=== PATIENT | male | born 1995 | race African-American/Black ===

== ENCOUNTER 2017-05-21 14:12 | Emergency (ER) | payer OTHER ==
[~2017-05-21] VITALS: Ht 177.8 cm; Wt 71.4 kg
[~2017-05-21 14:12] MED LIST: NOHOMEMEDS; ULTRAM50 MG PO
[2017-05-21] MEDS ORDERED: PREDNISONE10 MG PO (15:49)
[2017-05-21] MEDS ORDERED: PEPCID20 MG PO (15:50)
[2017-05-21] MEDS ORDERED: BENADRYL25 MG PO (15:50)
[2017-05-21 15:53] VITALS: BP 127/80
== END 2017-05-21 16:00 | disposition home or self-care (01) ==
LOC: EME 14:12
DX: R21 Rash and other nonspecific skin eruption (principal); F17.200 Nicotine dependence, unspecified, uncomplicated
CPT/HCPCS: 99281; 99284

== ENCOUNTER 2017-12-02 21:51 | Emergency (ER) | payer OTHER ==
[~2017-12-02] VITALS: Ht 177.8 cm; Wt 70.3 kg
[~2017-12-02 21:51] MED LIST changes: +BENADRYL25 MG PO; +PEPCID20 MG PO; +PREDNISONE10 MG PO
[2017-12-02 22:27] LABS: HEMATOCRIT 39.1 % (38.0-50.0); MCHC 33.2 G/DL (30.0-36.0); MCV 81.3 FL (86-99); PLATELET COUNT 238 K/uL (156-360); RBC DIS.WIDTH-CV 14.1 % (11.8-14.6); RBC DIS.WIDTH-SD 41.8 % (39-53); RED BLOOD COUNT 4.81 M/uL (4.00-5.50); WHITE BLOOD COUNT 7.7 K/uL (4.1-10.2)
[2017-12-02 22:40] LABS: ALBUMIN 4.4 g/dL (3.2-4.8)
[2017-12-02 22:41] LABS: CHLORIDE 106 mEq/L (99-109); SODIUM 141 mEq/L (136-147)
[2017-12-02 22:43] LABS: GLUCOSE 95 mg/dL (70-99); TOTAL PROTEIN 7.1 g/dL (6.4-8.3)
[2017-12-02 22:45] LABS: TOTAL BILIRUBIN 0.3 mg/dL (0.0-1.0)
[2017-12-02 22:46] LABS: ALKALINE PHOSPHATASE 50 IU/L (3-129)
[2017-12-02 22:47] LABS: CREATININE 0.9 mg/dL (0.6-1.3); GFR ESTIMATE (CALCULATED) > 59 mL/min/ (58.99-99999)
[2017-12-02 22:48] LABS: AST (GOT) 18 IU/L (2-34); UREA NITROGEN (BUN) 11 mg/dL (9-23)
[2017-12-02 22:50] LABS: ALT (GPT) 25 IU/L (3-49)
[2017-12-03 03:41] VITALS: BP 122/68
== END 2017-12-03 03:42 | disposition home or self-care (01) ==
LOC: EME 21:51
PROVIDERS: Emergency Medicine
DX: R51 Headache (principal); B34.9 Viral infection, unspecified; F17.200 Nicotine dependence, unspecified, uncomplicated
CPT/HCPCS: 80053; 85027; 87502; 87651 90; 99281; 99283; J1100